=== PATIENT | female | born 1995 | race Caucasian/White ===

== ENCOUNTER → 2016-04-23 | Outpatient (CLI) | payer BC ==
[2016-04-28 16:03] LABS: HPV 16 Not Detected (NOTDET); HPV 18 Not Detected (NOTDET)
== END ==
LOC: MW.CHOBGYN 13:59
PROVIDERS: ATTEND Obstetrics & Gynecology
DX: Z32.00 Encounter for pregnancy test, result unknown (principal)
CPT/HCPCS: 81025; 87624; G0145